=== PATIENT | male | born 1955 | race Two or more races ===

== ENCOUNTER 2022-12-03 15:26 | Emergency (ER) | payer SELFPAY ==
[~2022-12-03] VITALS: Ht 170.2 cm; Wt 74.3 kg
[2022-12-03] MEDS ORDERED: cloNIDine HCL 0.1 MG TAB PO ONE (16:00)
[2022-12-03 18:40] VITALS: TEMP 97.7
[2022-12-03 19:02] VITALS: BP 153/89; PULSE 90; RESP 18; O2SAT 96
== END 2022-12-03 19:03 | disposition home or self-care (01) ==
LOC: ER 15:26
DX: S61.215D Laceration without foreign body of left ring finger without damage to nail, subsequent encounter (principal); I10 Essential (primary) hypertension; Z88.8 Allergy status to other drugs, medicaments and biological substances; X58.XXXD Exposure to other specified factors, subsequent encounter